=== PATIENT | female | born 1990 | race Caucasian/White ===

== ENCOUNTER 2018-12-03 00:33 | Emergency (ER) | payer MEDICAID ==
[2018-12-03 00:48] VITALS: BP 142/79; PULSE 84; O2SAT 100
--- NOTE | 2018-12-03 01:05 | ERPHSYRPT ---
- History of Present Illness Source: patient Exam Limitations: no limitations Patient Subjective Stated Complaint: pt states she has a tooth on the lt side that has broken off and she thinks is abscessed. Triage Nursing Assessment: pt alert and oriented, answers questions approp. pt ambulatory with steady gait noted. respirations nonlabored with lungs cta. 2 broken teeth noted to lt lower jaw. Physician History: Pt presented to the ED complaining of toothache on the bottom left. Pt is on Amoxicillin, but has no relief. No fever, chills or sweats. Timing/Duration: today Quality: aching Allergies/Adverse Reactions: No Known Drug Allergies Allergy (Verified 12/03/18 00:51) Home Medications: No Reportable Medications [No Reported Medications] 12/03/18 [History] Hx Tetanus, Diphtheria Vaccination/Date Given: Yes (2015) Hx Influenza Vaccination/Date Given: No Hx Pneumococcal Vaccination/Date Given: No Immunizations Up to Date: Yes - Review of Systems Constitutional: No Fever, No Chills Eyes: No Symptoms Ears, Nose, & Throat: No Symptoms, Other (tooth ache) Respiratory: No Cough, No Dyspnea Cardiac: No Chest Pain, No Edema, No Syncope Abdominal/Gastrointestinal: No Abdominal Pain, No Nausea, No Vomiting, No Diarrhea - Past Medical History Pertinent Past Medical History: No - Past Surgical History Past Surgical History: No - Social History Smoking Status: Current every day smoker How long have you smoked: 10 yrs Exposure to second hand smoke: No Drug Use: none Patient Lives Alone: No - Female History Hx Last Menstrual Period: current Hx Now: No - Nursing Vital Signs Nursing Vital Signs: Initial Vital Signs Temperature 98.7 F 12/03/18 00:39 Pulse Rate 84 12/03/18 00:39 Respiratory Rate 16 12/03/18 00:39 Blood Pressure 142/79 12/03/18 00:39 O2 Sat by Pulse Oximetry 100 12/03/18 00:39 Pain Scale Pain Intensity 10 - Physical Exam General Appearance: no apparent distress Eye Exam: PERRL/EOMI Ears, Nose, Throat Exam: moist mucous membranes Gastrointestinal/Abdominal Exam: distention SpO2: 100 - Course Nursing assessment & vital signs reviewed: Yes - Progress Progress: unchanged Air Movement: good Progress Note: 12/03/18 01:02 Pt was informed that she needs to see a dentist, and that there is nothing we can do in the ER, that will treat her toothache. Information of dental clinics were given to the pt. Blood Culture(s) Obtained: No Antibiotics given: No Will see patient in: other (Dentist) - Departure Time of Disposition: 01:04 Departure Disposition: Home Clinical Impression: Tooth ache Condition: Stable Critical Care Time: No Referrals: DOCTOR,NO FAMILY [Primary Care Provider] -
== END 2018-12-03 01:15 | disposition home or self-care (01) ==
LOC: ED 00:33
DX: K08.89 Other specified disorders of teeth and supporting structures (principal)
CPT/HCPCS: 99283